=== PATIENT | female | born 1935 | race Caucasian/White ===

== ENCOUNTER 2019-05-26 12:41 | Outpatient (CLI) | payer MEDICARE, BC, MEDICAID ==
[2019-05-26 13:23] VITALS: BP 102/61; PULSE 81
== END 2019-05-26 13:50 | disposition home or self-care (01) ==
LOC: LL.ACU 12:41
PROVIDERS: ATTEND Internal Medicine Hematology & Oncology
DX: D63.1 Anemia in chronic kidney disease (principal); N18.4 Chronic kidney disease, stage 4 (severe)
CPT/HCPCS: 36415; 85025; 96372; J0881